=== PATIENT | male | born 2000 | race Caucasian/White ===

== ENCOUNTER 2020-09-27 02:00 | Inpatient (IN) | payer OTHER, SELFPAY ==
[2020-09-27] MEDS ORDERED: Ondansetron PF 4 MG/2 ML Vial ONE (03:13)
[2020-09-27] MEDS ORDERED: Morphine 4 MG/ML VIAL ONE (03:13)
[2020-09-27] MEDS ORDERED: Ondansetron ODT 4 MG TAB PO PRN (04:26)
[2020-09-27] MEDS ORDERED: Dextrose 50% Abboject 50 ML SYRINGE SLOW IVP PRN (04:26)
[2020-09-27] MEDS ORDERED: Sodium Chloride 0.9% 1,000 ML IV SCH (04:26)
[2020-09-27] MEDS ORDERED: traMADol HCl 50 MG TAB PO PRN (04:26)
[2020-09-27] MEDS ORDERED: Ondansetron PF 4 MG/2 ML Vial IVP PRN (04:26)
[2020-09-27] MEDS ORDERED: Dextrose 5% in Water 1,000 ML IV PRN (04:26)
[2020-09-27 04:31] VITALS: BMI 29.8
[2020-09-27] MEDS: Cyclobenzaprine 10 MG TAB PO PRN ×2 (04:39→21:41)
[2020-09-27] MEDS ORDERED: CEFAZOLIN 2 GM in Premix Bag 1 BAG IVPB SCH (06:00)
[2020-09-27] MEDS: Acetaminophen 500 MG TAB PO SCH ×4 (06:27→23:44)
[2020-09-27] MEDS: traMADol HCl 50 MG TAB PO PRN ×3 (06:30→19:22)
[2020-09-27] MEDS: Famotidine 20 MG TAB PO SCH ×2 (08:15→21:41)
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
--- NOTE | 2020-09-27 12:11 | CT ---
CT BRAIN: 09/27/20 PROVIDED CLINICAL HISTORY: Follow up skull fracture and parenchymal contusions. COMPARISON: 09/27/2020 at 2:20 a.m. FINDINGS: The ventricular system remains normal in size and morphology. There is no shift of the midline struct ures. The basilar cisterns appear patent. Comminuted, depressed right parietal skull fracture is rede monstrated. Pneumocephalus and subjacent hemorrhagic contusion are redemonstrated. No significant int erval change in the size of the parenchymal hematomas. The extracranial soft tissues and osseous stru ctures remain otherwise unremarkable. IMPRESSION: No significant interval detrimental change is evident. POS: VANCE
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
[2020-09-27] MEDS: Cephalexin 250 MG CAP PO SCH ×2 (18:15→23:44)
[2020-09-27] MEDS ORDERED: FLU VACC QS2020-21(6MOS UP)/PF 60 MCG/0.5 ML SYRINGE IM ONE (21:00)
[2020-09-28 05:24] LABS: #Basophils 0.1 thou/uL (0.0-0.2); #Eosinphils 0.2 thou/uL (0.0-0.7); #Monocytes 0.8 thou/uL (0.11-0.59); %Basophils 0.9 % (0.0-1.0); %Eosinophils 2.3 % (0.0-10.0); %Lymphocytes 37.2 % (21.0-51.0); %Monocytes 9.4 % (0.0-10.0); %Neutrophils 50.2 % (42.0-75.0); Hemoglobin 15.7 g/dL (14.0-18.0); Mean Corpuscular HGB CONC 34.4 g/dL (32.0-36.0); Mean Corpuscular Hemoglobin 31.2 pg (27.0-31.0); Mean Corpuscular Volume 90.8 fL (78.0-98.0); Mean Platelet Volume 8.5 fL (7.4-10.4); Platelet Count 244 thou/uL (130-400); RBC Distribution Width 11.3 % (11.5-14.5); Red Blood Cell (RBC) Count 5.02 mill/uL (4.70-6.10)
[2020-09-28] MEDS: traMADol HCl 50 MG TAB PO PRN ×2 (05:35→11:55)
[2020-09-28 05:36] LABS: Anion Gap 12 mmol/L (10-20); BUN (Urea Nitrogen) 11 mg/dL (8.9-20.6); Calc. Creatinine Clearance 206 mL/min (70-130); Calcium 8.8 mg/dL (7.8-10.44); Carbon Dioxide 23 mmol/L (22-29); Chloride 105 mmol/L (98-107); Estimated GFR-MDRD Greater than 90; Glucose 85 mg/dL (70-105); Potassium 3.9 mmol/L (3.5-5.1); Sodium 136 mmol/L (136-145)
[2020-09-28] MEDS: Acetaminophen 500 MG TAB PO SCH ×2 (05:36→11:54)
[2020-09-28] MEDS: Cephalexin 250 MG CAP PO SCH ×2 (05:37→11:55)
[2020-09-28 06:46] LABS: Bacteria/HPF None Seen HPF (None Seen); Bilirubin Negative (Negative); Blood, Urine Negative (Negative); Clarity Clear (Clear); Glucose, Urine (Dipstick) Normal (Negative); Ketone, Urine Negative (Negative); Leukocyte Negative Leu/uL (Negative); Nitrite Negative (Negative); Protein, Urine (Dipstick) 10 mg/dL (Neg-Trace); RBC/HPF 0-3 HPF (0-3); Specific Gravity, Urine 1.033 (1.002-1.036); Squamous Epithelial 0-3 HPF (0-3); Urobilinogen Normal mg/dL (Less than 2); WBC/HPF 0-3 HPF (0-3)
[2020-09-28 06:48] LABS: Urine Culture Reflex No No
[2020-09-28 06:59] LABS: Amphetamine Not Detected (NotDetected); Barbiturates Screen Not Detected (NotDetected); Benzodiazepine Screen Not Detected (NotDetected); Cocaine Metabolite Screen Not Detected (NotDetected); Medtox Control Line Valid? VALID (VALID); Medtox Reader # READER 1; Methadone Not Detected (NotDetected); Methamphetamine Not Detected (NotDetected); Opiate Screen Detected (NotDetected); Oxycodone Screen Not Detected (NotDetected); Phencyclidine (PCP) Not Detected (NotDetected); THC/Cannabinoid Screen Detected (NotDetected); Tricyclic Screen Not Detected (NotDetected)
[2020-09-28] MEDS: Famotidine 20 MG TAB PO SCH (08:28)
[2020-09-28 12:45] VITALS: BP 138/81; TEMP 98.3
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
--- NOTE | 2020-09-30 23:35 | PQF ---
CLINICAL DOCUMENTATION CLARIFICATION FORM: Dear : Jama Parson MD Date / Time: 09/30/2020 Please exercise your independent, professional judgment in responding to the clarification form. Clinical indicators are provided on the bottom of this form for your review Please check appropriate box(es): to clarify the LOC of subarachnoid hemorrhage [ x ] Concussion with loss of consciousness (30 min or less) [ ] Concussion with loss of consciousness (31 min to 59 min) [ ] Concussion with loss of consciousness (1 hour to 5 hours 59 min) [ ] Concussion with loss of consciousness (6 hours to 24 hours) [ ] Concussion with loss of consciousness (>24 hours with return to pre- existing conscious level) [ ] Concussion with loss of consciousness (>24 hours without return to pre- existing conscious level) [ ] Concussion with loss of consciousness (>24 hours with return to pre- existing conscious level with patient surviving) [ ] Concussion with loss of consciousness (Any duration with due to brain injury prior to regaining consciousness) Sophia Coma Score [ ] N/A [ ] 3-8 [ ] 9-12 [ ] 13-15 [ ] Other diagnosis (Please specify if any) [ ] Unable to determine Physician Signature: Date/Time: For continuity of documentation, please document condition throughout progress notes and discharge summary. Thank You. To be completed by CDI/Coding staff for physician review: Present Clinical Indicators - Signs / Symptoms / Labs Results and Location in Medical Record [ ] Eye opening (spontaneously, to speech, to pain, no response) [ ] Best motor response (obeys commands, localizes pain, withdraws, abnormal flexion, extends, Nil) [ ] Verbal response (oriented, confused conversation, inappropriate words, incomprehensible words, Nil) [x] Patient had loss of consciousness H&P on 09/27 [x] Sophia Coma Score (*a score of 7 or less is generally accepted as coma) GCS-15 ED provider report on 09/27 [x ] CT / MRI result - Parenchymal contusion and subarachnoid hemorrhage Brain CT on 09/27 [ ] Abnormal labs (glucose, ammonia, ABG, etc.) [ ] Seizure Present Risk Factors Results and Location in Medical Record [x] Acute traumatic subarachnoid hemorrhage H&P on 09/27 [ ] Toxicological (drug overdose, alcohol intoxication) [ ] Metabolic (hepatic or renal failure, DKA) [ ] Carotid artery disease Present Treatments Results and Location in Medical Record [x] 2 week course of oral keflex per neurosurgery recommendations Progress notes on 09/27 [ ] Increased nursing care to pt and/or family [x] Neurology consult Consult on 09/27 [ ] CDS/[employer]ra[employer] Est[employer]ator Signature: ROLA Phone #: Date/Time: 09/30/2020 This is a permanent part of the Medical Record MIRELLA
== END 2020-09-28 14:55 | disposition home or self-care (01) | DRG 87 ==
LOC: ERS 02:00 → SURG A 02:15 → OBSVTOIN 04:26 → SURG A 09-28 13:15
PROVIDERS: ADMIT Surgery; ATTEND Surgery
DX: S06.6X1A Traumatic subarachnoid hemorrhage with loss of consciousness of 30 minutes or less, initial encounter (principal); S02.91XA Unspecified fracture of skull, initial encounter for closed fracture; R40.2412 Glasgow coma scale score 13-15, at arrival to emergency department; R40.0 Somnolence; F10.129 Alcohol abuse with intoxication, unspecified; S01.01XA Laceration without foreign body of scalp, initial encounter; S02.0XXA Fracture of vault of skull, initial encounter for closed fracture; Z88.1 Allergy status to other antibiotic agents; Z88.0 Allergy status to penicillin; Y09 Assault by unspecified means
CPT/HCPCS: 36415; 36416; 70450; 80048; 80306; 80307; 81001; 85025; 96374; 96375; J0690; J2270; J2405

== ENCOUNTER 2020-10-07 12:34 | Outpatient (CLI) | payer OTHER ==
--- NOTE | 2020-10-07 13:11 | CT ---
CT Brain WO Con: 10/07/2020 12:41 PM CLINICAL HISTORY: Follow-up intracranial hemorrhage. IMAGING TECHNIQUE: Multiple CT images were obtained of the brain without IV contrast. COMPARISON: Prior CT the brain dated September 27, 2020 at 2:19 AM and 10:01 AM FINDINGS: BRAIN: Evidence of acute infarct: None. Evidence of chronic ischemic change:None. Evidence of intracranial hemorrhage: The punctate intraparenchymal hematoma involving the right carlos etal lobe has largely dissipated. There is some mild ribbonlike areas of increased density involving the gyri and sulci of the right parietal region likely related to some hemosiderin staining . The extent of the vasogenic edema in the region of the contusions is slightly increased from the prior exam. Evidence of brain volume loss:None. Evidence of midline shift: Third ventricle and septum pellucidum are midline. Ventricles: Normal. No hydrocephalus. SKULL: The depressed type right parietal skull fracture is not appreciably changed from the comparis on exam. The pneumocephalus present on the prior exam underlying the fracture site has resolved. VISUALIZED PARANASAL SINUSES: Clear. MASTOID AIR CELLS: Clear. EXTRACRANIAL SOFT TISSUES: Skin emeli overlie the skull fracture site. Scalp soft tissue emphysema has resolved. Scalp contusion has also decreased in prominence. IMPRESSION: Some resolution of intraparenchymal hematoma involving the right parietal lobe, subjacent to a depres sed type right parietal skull fracture. There is some mild residual hemosiderin staining involving the sulci and gyri suspected in the right parietal lobe. The extent of the vasogenic edema in the rig ht parietal region is slightly increased in size from the prior exam. Follow-up MRI of the brain may be helpful for further characterization. Resolution of the pneumocephalus underlying the depress ed type parietal skull fracture.
== END 2020-10-07 12:35 | disposition home or self-care (01) ==
LOC: TBSIIMAG 12:34
PROVIDERS: ATTEND Neurological Surgery
DX: S06.5X9A Traumatic subdural hemorrhage with loss of consciousness of unspecified duration, initial encounter (principal); S02.0XXA Fracture of vault of skull, initial encounter for closed fracture; G93.6 Cerebral edema
CPT/HCPCS: 70450